=== PATIENT | female | born 1970 | race Caucasian/White ===

== ENCOUNTER → 2016-12-22 | Outpatient (REF) | payer BC | LOC: M LAB REF 09:40 | PROVIDERS: ATTEND Physician Assistant | DX: J02.9 Acute pharyngitis, unspecified (principal) ==

== ENCOUNTER → 2022-04-05 | Outpatient (REF) | payer BC | LOC: M SFHCDERM 13:49 | PROVIDERS: ATTEND Nurse Practitioner Family | DX: D48.9 Neoplasm of uncertain behavior, unspecified (principal) ==

== ENCOUNTER → 2022-11-06 | Outpatient (CLI) | payer BC | LOC: M SOG 08:11 | PROVIDERS: ATTEND Orthopaedic Surgery | DX: M25.561 Pain in right knee (principal) ==

== ENCOUNTER 2024-10-17 15:39 | Emergency (ER) | payer OTHER, SELFPAY ==
[2024-10-17] MEDS ORDERED: ONDANSETRON 4MG 2ML VIAL IV ONE (16:10)
[2024-10-17] MEDS ORDERED: ISOVUE-370 76% 100ML VIAL As Ordered ONE (16:17)
[2024-10-17] MEDS: MORPHINE 2 MG/ML 1ML VIAL IV PRN (16:24)
[2024-10-17 16:44] LABS: BASO # 0.1 10^3/uL (0.0-0.2); BASO % 0.3 % (0.0-1.0); EOS # 0.1 10^3/uL (0.0-0.5); EOS % 0.3 % (0.0-3.0); HEMATOCRIT 40.4 % (36.0-47.0); HEMOGLOBIN 13.6 g/dl (12.0-15.5); LYMPH # 2.1 10^3/uL (1.5-5.0); MEAN CORPUSCULAR HEMOGLOBIN 27.5 pg (27.0-33.0); MEAN CORPUSCULAR HGB CONC 33.7 g/dl (32.0-36.5); MEAN CORPUSCULAR VOLUME 81.8 fl (80.0-96.0); MONO # 0.7 10^3/uL (0.0-0.8); MONO % 4.3 % (2.0-8.0); NEUTROPHILS % 81.5 % (36.0-66.0); PLATELET COUNT, AUTOMATED 367 10^3/uL (150-450); RED BLOOD COUNT 4.94 10^6/uL (4.00-5.40); WHITE BLOOD COUNT 17.2 10^3/uL (4.0-10.0)
[2024-10-17 17:05] LABS: INR 0.88; PARTIAL THROMBOPLASTIN TIME 28.2 SECONDS (24.8-34.2); PROTHROMBIN TIME 12.3 SECONDS (12.5-14.5)
[2024-10-17 17:14] LABS: LIPASE 83 U/L (12-53)
[2024-10-17 17:15] LABS: AMYLASE 109 U/L (30-118)
[2024-10-17 17:16] LABS: ALBUMIN 3.8 G/DL (3.2-5.2); ALKALINE PHOSPHATASE 96 U/L (35-104); ALT/SGPT 38 U/L (7.0-40); AST/SGOT 55 U/L (<34); BILIRUBIN,DIRECT < 0.1 MG/DL (<0.4); BILIRUBIN,TOTAL 0.4 MG/DL (0.3-1.2); BLOOD UREA NITROGEN 31 MG/DL (9-23); CALCIUM LEVEL 9.1 MG/DL (8.5-10.1); CARBON DIOXIDE LEVEL 26 MMOL/L (20-31); CHLORIDE LEVEL 103 MMOL/L (98-107); CK-MB VALUE MASS 4.2 NG/ML (<3.6); CREATININE FOR GFR 1.17 MG/DL (0.55-1.30); GLOMERULAR FILTRATION RATE 51.5 (>51); GLUCOSE, FASTING 89 MG/DL (60-100); SODIUM LEVEL 142 MMOL/L (136-145); TOTAL PROTEIN 7.2 G/DL (5.7-8.2)
[2024-10-17 17:19] LABS: CPK CREATINE PHOSPHOKINASE 286 U/L (34-145); MB/CK RELATIVE INDEX 1.46 (< OR =4)
[2024-10-17] MEDS: fentaNYL 100 MCG/2 ML INJECTION IV PRN (19:11)
[2024-10-17 20:02] VITALS: BP 159/105; TEMP 97.9; O2SAT 98
== END 2024-10-17 20:12 | disposition short-term general hospital (02) ==
LOC: M ED 15:39
DX: S32.422A Displaced fracture of posterior wall of left acetabulum, initial encounter for closed fracture (principal); S22.070A Wedge compression fracture of T9-T10 vertebra, initial encounter for closed fracture; S22.060A Wedge compression fracture of T7-T8 vertebra, initial encounter for closed fracture; S73.035A Other anterior dislocation of left hip, initial encounter; W00.0XXA Fall on same level due to ice and snow, initial encounter; M54.50 Low back pain, unspecified; Y92.009 Unspecified place in unspecified non-institutional (private) residence as the place of occurrence of the external cause; Y93.H1 Activity, digging, shoveling and raking; Y99.9 Unspecified external cause status
CPT/HCPCS: 70450; 71045; 71260; 72125; 72128; 72131; 73502; 73552; 74177; 80047; 80048; 80076; 82150; 82550; 82553; 83605; 83690; 84484; 85025; 85610; 85730; 86850; 86900; 86901; 93005; 93041; 94760; 96374; 96375; 96376; 99285; J3010; Q9967

== ENCOUNTER → 2025-04-14 | Outpatient (REF) | payer OTHER ==
[2025-04-14 18:05] LABS: ALT/SGPT 21 U/L (7.0-40); AST/SGOT 20 U/L (<34); CALCIUM LEVEL 9.7 MG/DL (8.5-10.1); CARBON DIOXIDE LEVEL 30 MMOL/L (20-31); CHLORIDE LEVEL 99 MMOL/L (98-107); CHOLESTEROL LEVEL 222 MG/DL (<200); CHOLESTEROL RISK RATIO 4.97 (<5); CREATININE FOR GFR 0.99 MG/DL (0.55-1.30); GLOMERULAR FILTRATION RATE 67.8 (>51); LDL CHOLESTEROL 116.0 MG/DL (<100); NON-HDL-C 177.4 MG/DL; POTASSIUM SERUM 4.5 MMOL/L (3.5-5.1); SODIUM LEVEL 141 MMOL/L (136-145); TRIGLYCERIDES LEVEL 307 MG/DL (<150)
[2025-04-14 18:07] LABS: TOTAL 25(OH) VITAMIN D 74.2 NG/ML (20.0-100.0)
[2025-04-14 18:22] LABS: ESTIMATED AVERAGE GLUCOSE 105.0 MG/DL (60-110)
[2025-04-14 18:37] LABS: HIV 1&2 SCREEN NEGATIVE (NEGATIVE)
[2025-04-14 18:45] LABS: HEPATITIS C VIRUS ABY INDEX < 0.02 INDEX (<0.8)
== END ==
LOC: M LAB REF 16:37
PROVIDERS: ATTEND Physician Assistant
DX: E55.9 Vitamin D deficiency, unspecified (principal); Z11.9 Encounter for screening for infectious and parasitic diseases, unspecified; E66.9 Obesity, unspecified

== ENCOUNTER → 2025-08-30 | Outpatient (CLI) | payer OTHER ==
[2025-08-30 12:52] LABS: APPEARANCE, URINE HAZY (CLEAR); BACTERIA, URINE AUTO NEGATIVE (NEGATIVE); BILIRUBIN, URINE AUTO NEGATIVE (NEGATIVE); BLOOD, URINE BLOOD NEGATIVE (NEGATIVE); GLUCOSE, URINE (UA) AUTO NEGATIVE (NEGATIVE); KETONE, URINE AUTO NEGATIVE (NEGATIVE); LEUKOCYTE ESTERASE, URINE AUTO NEGATIVE (NEGATIVE); MUCUS, URINE SMALL (NEGATIVE); NITRITE, URINE AUTO NEGATIVE (NEGATIVE); PROTEIN, URINE AUTO NEGATIVE (NEGATIVE); RBC, URINE AUTO 1 /HPF (0-3); SPECIFIC GRAVITY URINE AUTO 1.021 (1.002-1.035); SQUAMOUS EPITHELIAL CELL UR AU 0 /HPF (0-6); UROBILINOGEN, URINE AUTO 0.2 mg/dL (0.0-2.0); WBC, URINE AUTO 2 /HPF (0-3)
[2025-08-30 13:30] LABS: ALT/SGPT 24.0 U/L (7.0-40); AST/SGOT 17.0 U/L (<34); CALCIUM LEVEL 10.0 MG/DL (8.5-10.1); CARBON DIOXIDE LEVEL 29.0 MMOL/L (20-31); CHLORIDE LEVEL 102.0 MMOL/L (98-107); CREATININE FOR GFR 0.88 MG/DL (0.55-1.30); GLOMERULAR FILTRATION RATE 78.1 (>51); POTASSIUM SERUM 4.4 MMOL/L (3.5-5.1); SODIUM LEVEL 138.0 MMOL/L (136-145)
[2025-08-30 14:57] LABS: MALB URINE SIEMENS 19.0 MG/L
[2025-08-30 14:58] LABS: CREATININE, URINE 117.3 MG/DL; MAU/CREAT RATIO 16.1 MCG/MG (0.0-30.0)
== END ==
LOC: M EKG 10:24
PROVIDERS: ATTEND Physician Assistant
DX: I10 Essential (primary) hypertension (principal); E03.8 Other specified hypothyroidism